=== PATIENT | female | born 1990 | race Caucasian/White ===

== ENCOUNTER 2016-04-30 14:46 | Inpatient (IN) | payer OTHER ==
[~2016-04-30] VITALS: Ht 167.6 cm; Wt 103.4 kg
[2016-04-30] MEDS ORDERED: Oxytocin 30 Units/500 mL LR Premix IV ONE (14:48)
[2016-04-30] MEDS ORDERED: Methylergonovine 0.2 mg/mL Inj IM PRN (17:15)
[2016-04-30] MEDS ORDERED: Lactated Ringer's 1,000 ML IV SCH (17:15)
[2016-04-30] MEDS ORDERED: LANOlin HPA 7 Gm Ointment TOPICAL PRN (17:15)
[2016-04-30] MEDS ORDERED: Oxytocin 30 Units/500 mL LR 30 UNITS in IV Premix 1 EACH IV PRN (17:15)
[2016-04-30] MEDS ORDERED: Hemorrhage Kit, Post Partum XX ONE (17:15)
[2016-04-30] MEDS ORDERED: Witch Hazel-Glycerin Pads TOPICAL PRN (17:15)
[2016-04-30] MEDS ORDERED: Oxytocin 10 Unit/mL Inj IM PRN (17:15)
[2016-04-30] MEDS ORDERED: Benzocaine (Dermoplast) 20% 60 Gm Spray TOPICAL PRN (17:15)
[2016-04-30] MEDS ORDERED: Carboprost 250 mCg/mL Inj IM PRN (17:15)
--- NOTE | 2016-05-01 05:16 | HP ---
[address] [address] HISTORY AND PHYSICAL PATIENT: NÉSTOR MASSEY : 1990 MR#: [id number] ADMIT: 04/30/2016 JOB ID: [id number] CHIEF COMPLAINT: Transfer of care from [facility]. HISTORY OF PRESENT ILLNESS: This is a 25-year-old, G1, P0 female at 41 plus 2 weeks gestational age with an EDC of April 21, 2016 who is transferred in from the [facility] due to maternal exhaustion and maternal request. has otherwise been uncomplicated. laboratory data showed a blood type of O positive, antibody screen negative, rubella immune, hep B surface antigen negative, RPR nonreactive. VDRL nonreactive. HIV was declined. She is GBS negative. The patient had all of her care at the [facility] and came in in active labor the afternoon of April 30. She progressed to 8 cm dilated and SROM occurred with meconium. Due to increasing maternal pain as well as some meconium stained amniotic fluid, the patient requested transfer to [facility] and she was transferred here for this reason. PAST MEDICAL HISTORY: None. PAST SURGICAL HISTORY: None at this time. SOCIAL HISTORY: No tobacco, alcohol or drug use. FAMILY HISTORY: Noncontributory. OBJECTIVE: Heart rate 106, O2 saturation 94%. Blood pressure within normal limits. In general, she is awake, alert, oriented. She is pushing and very uncomfortable with contractions. Her abdomen is soft, nontender, nondistended. She is gravid with size appropriate for dates. EFW per the regulatory intern was 8 pounds. On exam, she has 140 baseline, moderate variability, with decels with contractions down to the 80s that recovers in between. She is lamin every 3 minutes. She is complete with the head at +3 station. ASSESSMENT: This is a 25-year-old, G1, P0, at 41 plus 2 weeks gestational age, transferred in from the [facility] due to meconium stained amniotic fluid and maternal request. She is stable. PLAN: At this point in time, we will continue expectant management and anticipate a normal spontaneous vaginal delivery. [facility] CENTERLionel
[2016-05-01 07:02] LABS: Mean Corpuscular Hemoglobin 27.8 pg (27.0-35.0); Mean Corpuscular Volume 86.2 fL (81-100)
[2016-05-01] MEDS: Ascorbic Acid 500 mg Tablet PO SCH ×2 (08:00→09:18)
--- NOTE | 2016-05-01 10:20 | PCM.DIOB ---
Obstetrical Disch Instruction Date of Service: May 01, 2016 Dates of Hospitalization Date of Hospital Admission Apr 30, 2016 at 14:46 Providers Admitting Physician: Nita Ross MD Primary Care Physician: Alison Laceky CNM Attending Physician: Nita Ross MD Discharge Diagnosis Discharge Diagnosis Vaginal delivery Problems: Diet Discharge Diet: No restrictions Activity Discharge Activity-General: Pelvic Rest for 6 weeks, Try not to overdue, Be up and about, Balance rest and activity Dressing and Incisional Care Hygiene: May shower, NO bathtub, hot tub or whirlpool Additional Instructions Discharge Instructions Please call office if heavy vaginal bleeding, severe abdominal pain, foul smelling discharge, fever more than 100.4 or short of breath Follow Up Plan Follow Up Plan follow up 6 weeks after delivery. You are welcome to follow up [facility]. You will need call to make appointment christian after you leave hospital. It 's all OK if you prefer to follow up with your manager small business. It should also be 6 weeks after delivery Please call our office or your manager small business if heavy vaginal bleeding, severe abdominal pain,foul smelling discharge , or fever more than 100.4 Follow-up appointment: Weeks (6) Call your provider for: Fever or Chills, Shortness of breath, Heavy vaginal bleeding, Excessive constipation, Vaginal discomfort, Red painful breasts Blanche Lynch MD May 01, 2016 10:20
[2016-05-01] MEDS ORDERED: DOCU-41 PO (10:34)
[2016-05-01] MEDS ORDERED: IBUP800T28 PO (10:34)
[2016-05-01 11:36] VITALS: BP 125/72; PULSE 90; RESP 16
--- NOTE | 2016-05-02 16:51 | DIS ---
[address] [address] DISCHARGE SUMMARY PATIENT: NÉSTOR MASSEY : 1990 MR#: [id number] ADMIT: 04/30/2016 JOB ID: [id number] DIS: 05/01/2016 DATE OF SERVICE: This is a 25-year-old female. She is 1, para 1, now status post vaginal delivery. She was transferring from [facility] when she was 8 cm. She delivered vaginally after admission. The delivery was not complicated. After delivery, the patient recovering well. She has mild pain from contractions, well controlled by p.o. medication. Her lochia was decreasing to minimal to moderate. She could ambulate, she could void well, and she tolerated her diet. PHYSICAL EXAMINATION: She is afebrile. Vitals stable. Cardiac RRR. No murmur. Pulmonary: Bilaterally clear. Back nontender. No CVA tenderness. Abdomen soft. The uterus is well contracted. Extremities: Nontender. ASSESSMENT AND PLAN: A 25-year-old para 1 after normal vaginal delivery, doing well. PLAN: To discharge her home today. Instructions given that if there is heavy vaginal bleeding, severe abdominal pain, foul-smelling discharge, fever more than 100.4, short of breath, she needs to call office at [facility] or her pony ride operator for evaluation or go to the ED. She is instructed that she will need six weeks care either with us at [facility] or with her pony ride operator. Medication given with Motrin 800 mg for 30 pills, no refills. She can take every 8 hours p.r.n. for pain. Colace 60 pills with no refills p.r.n. for constipation. MTDD
--- NOTE | 2016-05-02 20:58 | OP ---
[address] [address] OPERATIVE REPORT PATIENT: NÉSTOR MASSEY : 1990 MR#: [id number] ADMIT: 04/30/2016 JOB ID: [id number] DATE OF SURGERY: 04/30/2016 PREOPERATIVE DIAGNOSIS(ES): A 41-week intrauterine , in active labor. POSTOPERATIVE DIAGNOSIS(ES): A 41-week intrauterine , in active labor. PROCEDURES PERFORMED: Spontaneous vaginal delivery. SURGEON: Nita Ross MD. ANESTHESIA: Local. ESTIMATED BLOOD LOSS: 400 cc. FINDINGS: Live-born male infant, born at 1607 hours, weighing 7 pounds 13 ounces with Apgars of 9 at one minute, 9 at five minutes. Second-degree laceration, bilateral labial lacerations. COMPLICATIONS: None apparent. INDICATIONS: This is a 25-year-old, G1, P0 female, who presented following transfer of care from the [facility] due to maternal exhaustion and meconium stained amniotic fluid. She presented in labor at 41 plus 2 weeks gestational age on the with an EDC of April 21, 2016. At the time of admission, she was noted to be 8 cm dilated and grossly ruptured with meconium stained amniotic fluid. She was admitted and she then quickly progressed to complete, at which point, she began to push, bringing the 's vertex to the perineum. PROCEDURE: The patient was noted to be complete and pushing so she was placed in dorsal lithotomy position, prepped and draped in the usual sterile fashion for vaginal delivery. She pushed and delivered spontaneously in the TYRON position over an intact perineum. The anterior shoulder then delivered easily, followed by the posterior shoulder. The remainder of the was then easily delivered. The cord was then clamped and cut after a 60 second cord clamping delay, and the was placed on the mother's abdomen where nursing personnel were in attendance. Cord blood was then obtained. The placenta delivered intact spontaneously after Pitocin was started. It was passed off the table. Examination of the cervix revealed no lacerations. Examination of vaginal vault showed a midline 2nd-degree laceration and bilateral labial lacerations which were repaired with 3-0 Vicryl in a standard running fashion and then with a running nonlocking stitch bilaterally. All sponge, needle, and instrument counts were correct at the completion of the procedure. The patient tolerated the procedure well and recovered in Labor and Delivery with her .
== END 2016-05-01 13:07 | disposition home or self-care (01) | DRG 775 ==
LOC: FBC 14:46
PROVIDERS: ADMIT Obstetrics & Gynecology; ATTEND Obstetrics & Gynecology
PROC: 10E0XZZ Delivery of Products of Conception, External Approach (ICD-10-PCS; principal; 2016-04-30)
PROC: 0KQM0ZZ Repair Perineum Muscle, Open Approach (ICD-10-PCS; 2016-04-30)
DX: O77.0 Labor and delivery complicated by meconium in amniotic fluid (principal); Z3A.41 41 weeks gestation of pregnancy; Z37.0 Single live birth; O48.0 Post-term pregnancy; O70.1 Second degree perineal laceration during delivery